=== PATIENT | female | born 1970 | race African-American/Black ===

== ENCOUNTER 2019-10-23 17:56 | Emergency (ER) | payer OTHER ==
[~2019-10-23] VITALS: Ht 162.6 cm; Wt 136.1 kg
[2019-10-23 20:35] LABS: URINE BILIRUBIN NEGATIVE (Negative); URINE BLOOD 2+ (Negative); URINE CLARITY SL CLOUDY; URINE COLOR YELLOW; URINE GLUCOSE-RANDOM* NEGATIVE (Negative); URINE KETONES NEGATIVE (Negative); URINE LEUKOCYTES-REFLEX TRACE (Negative); URINE NITRITE-REFLEX NEGATIVE (Negative); URINE PROTEIN (DIPSTICK) NEGATIVE (Negative); URINE SPECIFIC GRAVITY >= 1.030 (1.005-1.035); URINE UROBILINOGEN 0.2 E.U./dl (0.2-1.0)
[2019-10-23 20:41] LABS: SQUAMOUS >10 Many /LPF (0-3)
[2019-10-23 20:42] LABS: BACTERIA-REFLEX None Seen /HPF (None Seen); CALCIUM OXALATE 0-3 Few /LPF (None Seen); CASTS None Seen /LPF (None Seen); URINE RBC 0-2 Rare /HPF (0-2); URINE WBC-REFLEX 0-5 Rare /HPF (0-5)
[2019-10-23 20:43] LABS: AMORPHOUS URATES Few /LPF (None Seen)
[2019-10-23] MEDS ORDERED: PREDNISONE 20 M20 MG PO (21:15)
[2019-10-23] MEDS ORDERED: TESSALON PERLE100 MG PO (21:15)
[2019-10-23] MEDS ORDERED: METRONIDAZOLE500 M4 PO (21:15)
[2019-10-23 21:28] VITALS: BP 156/89
== END 2019-10-23 21:30 | disposition home or self-care (01) ==
LOC: ER 17:56
PROVIDERS: Physician Assistant
DX: N76.0 Acute vaginitis (principal); J20.8 Acute bronchitis due to other specified organisms; J02.9 Acute pharyngitis, unspecified; R53.83 Other fatigue